=== PATIENT | male | born 2000 | race Caucasian/White ===

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

== ENCOUNTER → 2022-05-21 16:42 | Outpatient (BNVA) | payer OTHER, SELFPAY | PROVIDERS: Visit Provider Nurse Practitioner Family | DX: M25.561 Pain in right knee (principal) | CPT/HCPCS: 73562 ==

== ENCOUNTER → 2022-05-26 14:32 | Outpatient (BNVA) | payer OTHER, SELFPAY | PROVIDERS: Visit Provider Nurse Practitioner Family | DX: S62.522A Displaced fracture of distal phalanx of left thumb, initial encounter for closed fracture (principal); X58.XXXA Exposure to other specified factors, initial encounter | CPT/HCPCS: 73130 ==

== ENCOUNTER → 2022-06-01 10:28 | Outpatient (BNVA) | payer BC, OTHER, SELFPAY | PROVIDERS: Referring Provider Nurse Practitioner Family; Visit Provider Student in an Organized Health Care Education/Training Program | DX: S62.522A Displaced fracture of distal phalanx of left thumb, initial encounter for closed fracture (principal); W22.8XXA Striking against or struck by other objects, initial encounter | CPT/HCPCS: 73130 ==

== ENCOUNTER 2022-06-03 09:49 | Day surgery (SDC) | payer OTHER, SELFPAY ==
[2022-06-03] VITALS (9 sets, daily range): BP systolic 120–164; BP diastolic 49–95; PULSE 65–81; RESP 16–20; TEMP 36.2–36.6; O2SAT 94–99
--- NOTE | 2022-06-03 | SCC_ITS ---
Procedure done: Left thumb irrigation and debridement Left thumb distal phalanx open reduction internal fixation Left thumb nail plate removal Left thumb nailbed repair 59 seconds of fluoroscopic guidance, for a cumulative dose of 1.0 mGy, was provided to Dr. Wu by the radiology department. C-arm images of the LEFT finger were saved for the patient's permanent record. [facility]
--- NOTE | 2022-06-03 | XR_ITS ---
WS: [id number] XR finger LT min 2V [id number] REASON FOR EXAM: ORIF LT THUMB FINDINGS: Longitudinal pinning of the oblique fracture of the distal phalanx of the left thumb. Fracture fragme nts and surgical appliances are in proper position and alignment XR/XR finger LT min 2V [id number] IMPRESSION: Internal fixation of thumb fracture without abnormality as above.
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
[2022-06-03] MEDS: sodium chloride 0.9% 1,000 ML 30 ML IV (10:23)
[2022-06-03] MEDS: acetaminophen 1,000 MG/100 ML PIGGYBACK 400 MG IV (10:25)
[2022-06-03] MEDS: ketorolac 30 mg/mL INJ IVP (10:28)
--- NOTE | 2022-06-03 12:36 | P.HPUD_ITS ---
Surgery/Procedure H&P Update DATE OF PROCEDURE: June 03, 2022 DATE H&P PERFORMED: 06/01/22 CHANGES TO PREVIOUS DOCUMENTATION: None PREOP DIAGNOSIS: Left thumb distal phalanx fracture with nailbed injury PRIMARY INDICATION FOR PROCEDURE: Left thumb distal phalanx fracture with nailbed injury PLANNED PROCEDURE: Operation Date: 06/03/22 11:25 Proposed Procedures p Fingernail Ablation/Matrixectomy(Left) - Prashant Wu DO s Left thumbnail removal, Nail bed repair, Distal phalanyx pin fixiation 03813,1 [id number](Left) - Prashant Wu DO
[2022-06-03] MEDS: ceFAZolin 2,000 MG in sodium chloride 0.9% (plus) 50 ML 100 MG IV (13:02)
--- NOTE | 2022-06-03 14:09 | P.OP_ITS ---
Brief Operative Note Date of procedure: 06/04/22 Pre-op diagnosis: Left thumb distal phalanx fracture with nailbed injury Post-op diagnosis: same Procedure Done: Left thumb irrigation and debridement, nail plate removal, open reduction internal fixation left thumb distal phalanx fracture, nailbed repair Surgeon: Prashant Wu Estimated blood loss (mL): 1 Complications: None Post-op Plan: Patient to recover in PACU. Will return home later today once tolerating diet and pain controlled. Patient given appropriate discharge instructions as well as pain medication and should finish his p.o. antibiotics on the emergency department. Patient's dressings are in place clean dry intact. We will have him follow-up with OT hand therapy for dressing takedown in a hand-based splint. Patient will see them next week. We will see me in office in 2 weeks. Condition: stable Disposition: same day Coding Level of Care Code Acute Optomechanical Technician for Ta Dang
--- NOTE | 2022-06-03 14:10 | PM.PACU ---
PACU note Narrative: Patient seen and examined in PACU. Patient recovering well. Dressing to the left thumb clean dry and intact. Examination limited secondary to dressing. Patient had local anesthesia digital block to the left thumb and dressing covers finger. Patient had brisk capillary refill less than 2 seconds after finger turnicot was removed intraoperatively. Exam: somnolent, arousable (See narrative for detailed exam) Disposition: discharged
[2022-06-03] MEDS: HYDROcodone-acetaminophen 5-325 mg Tablet 1 TAB PO (15:00)
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
--- NOTE | 2022-06-03 16:33 | ANE.PACU2 ---
Inpatient post-anesthesia follow up: Airway intact: Yes Vital signs: Temperature 97.8 F Pulse Rate 70 Respiratory Rate 18 Blood Pressure 164/95 Pulse Oximetry 97 Oxygen Delivery Me thod Room Air Oxygen Flow Rate 8 Fraction of Inspir ed Oxygen Hydration adequate: Yes Nausea and vomiting: No Pain level: 1 Mental status: Baseline
== END 2022-06-03 15:40 | disposition home or self-care (01) ==
PROVIDERS: PCP Nurse Practitioner Family; Visit Provider Student in an Organized Health Care Education/Training Program
PROC: 0HBQXZZ Excision of Finger Nail, External Approach (ICD-10-PCS; CPT 11750; principal; 2022-06-03 11:15)
PROC: (CPT 11010; 2022-06-03 11:15)
DX: S62.525A Nondisplaced fracture of distal phalanx of left thumb, initial encounter for closed fracture (principal); W22.8XXA Striking against or struck by other objects, initial encounter; F17.200 Nicotine dependence, unspecified, uncomplicated; F17.220 Nicotine dependence, chewing tobacco, uncomplicated
CPT/HCPCS: 11010; 11760; 26765; 73140; 76000; C1713; J1100; J1885; J2250; J2405; J2704; J3010; J3490; J7030

== ENCOUNTER 2022-06-15 06:00 | Outpatient (RCR) | payer BC, SELFPAY | END 2022-06-29 23:59 | disposition home or self-care (01) | LOC: SOT 06:00 | PROVIDERS: PCP Nurse Practitioner Family; Visit Provider Student in an Organized Health Care Education/Training Program | DX: S62.522D Displaced fracture of distal phalanx of left thumb, subsequent encounter for fracture with routine healing (principal); X58.XXXD Exposure to other specified factors, subsequent encounter | CPT/HCPCS: 97166; L3807 ==

== ENCOUNTER → 2022-06-18 13:38 | Outpatient (BNVA) | payer OTHER, SELFPAY | PROVIDERS: PCP Nurse Practitioner Family; Visit Provider Student in an Organized Health Care Education/Training Program | DX: S61.002D Unspecified open wound of left thumb without damage to nail, subsequent encounter (principal); S62.522D Displaced fracture of distal phalanx of left thumb, subsequent encounter for fracture with routine healing; X58.XXXD Exposure to other specified factors, subsequent encounter | CPT/HCPCS: 73130 ==

== ENCOUNTER 2022-06-18 21:28 | Emergency (ER) | payer BC, SELFPAY ==
[2022-06-18 21:52] VITALS: BP 146/96; PULSE 76; RESP 15; TEMP 36.5; O2SAT 99; BMI 31.4
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
== END 2022-06-19 01:16 | disposition home or self-care (01) ==
PROVIDERS: Emergency Provider Registered Nurse; PCP Nurse Practitioner Family
DX: M54.2 Cervicalgia (principal); V89.2XXA Person injured in unspecified motor-vehicle accident, traffic, initial encounter; F17.220 Nicotine dependence, chewing tobacco, uncomplicated; Z98.890 Other specified postprocedural states
CPT/HCPCS: 70450; 72040; 73130; 73562; 99284

== ENCOUNTER → 2022-07-09 09:07 | Outpatient (BNVA) | payer BC, SELFPAY | PROVIDERS: PCP Nurse Practitioner Family; Visit Provider Student in an Organized Health Care Education/Training Program | DX: S62.522D Displaced fracture of distal phalanx of left thumb, subsequent encounter for fracture with routine healing (principal); X58.XXXD Exposure to other specified factors, subsequent encounter | CPT/HCPCS: 73130 ==

== ENCOUNTER → 2022-07-28 11:54 | Outpatient (BNVA) | payer BC, SELFPAY | PROVIDERS: PCP Nurse Practitioner Family; Visit Provider Nurse Practitioner Family | DX: R10.12 Left upper quadrant pain (principal) | CPT/HCPCS: 80053 ==

== ENCOUNTER → 2022-08-03 15:00 | Outpatient (BNVA) | payer BC, SELFPAY | PROVIDERS: PCP Nurse Practitioner Family; Visit Provider Nurse Practitioner Family | DX: R50.9 Fever, unspecified (principal); J02.9 Acute pharyngitis, unspecified; Z20.822 Contact with and (suspected) exposure to COVID-19 | CPT/HCPCS: 87400; 87426; 87880 ==

== ENCOUNTER → 2022-09-03 10:19 | Outpatient (BNVA) | payer OTHER, SELFPAY | PROVIDERS: PCP Nurse Practitioner Family; Visit Provider Student in an Organized Health Care Education/Training Program | DX: S62.522A Displaced fracture of distal phalanx of left thumb, initial encounter for closed fracture (principal); S61.002A Unspecified open wound of left thumb without damage to nail, initial encounter; X58.XXXA Exposure to other specified factors, initial encounter | CPT/HCPCS: 73130 ==

== ENCOUNTER → 2025-01-02 13:08 | Outpatient (BNVA) | payer OTHER, SELFPAY | PROVIDERS: PCP Nurse Practitioner Family; Visit Provider Nurse Practitioner Family | DX: F32.A Depression, unspecified (principal); I10 Essential (primary) hypertension; F10.10 Alcohol abuse, uncomplicated | CPT/HCPCS: 80053; 80061; 82306; 82607; 84443; 85025 ==